=== PATIENT | female | born 1940 | race Caucasian/White ===

== ENCOUNTER 2018-06-30 12:16 | Emergency (ER) | payer MEDICARE, OTHER ==
[2018-06-30 12:32] VITALS: BP 181/75; PULSE 62; RESP 16; TEMP 98.8
--- NOTE | 2018-06-30 12:56 | ED ---
General Adult HPI - General Chief complaint: Extremity Injury, Lower Stated complaint: leg pain Time Seen by Provider: 06/30/18 12:40 Source: patient, RN notes reviewed Mode of arrival: wheelchair Limitations: no limitations - History of Present Illness Initial comments: Patient is a 77-year-old female presented to the emergency room today with a chief complaint of left knee pain. She states the pain started 2 days ago. She states no specific injury or trauma to it. She states that she feels pains located inside the left knee. Admits that this feels somewhat swollen to her. Patient states pain is worse with movements. States she can feel something "clicking" in it. Patient denies any other complaints. Patient denies any recent fever, chills, shortness of breath, chest pain, back pain, abdominal pain , nausea or vomiting, numbness or tingling, headaches or visual changes, or any other complaints. - Related Data Home Medications Medication Instructions Recorded Confirmed Atenolol [Tenormin] 50 mg PO DAILY 09/29/14 09/29/14 Insulin Glargine [Lantus] 36 unit SQ HS 09/29/14 09/29/14 Pravastatin Sodium [Pravachol] 20 mg PO DAILY 09/29/14 09/29/14 Quinapril HCl 40 mg PO DAILY 09/29/14 09/29/14 amLODIPine [Norvasc] 10 mg PO DAILY 09/29/14 09/29/14 sitaGLIPtin PHOSPHATE [Januvia] 100 mg PO DAILY 09/29/14 09/29/14 Previous Rx's Medication Instructions Recorded Amoxic-Pot Clav 875-125Mg 1 each PO Q12HR #14 tablet 10/01/14 [Augmentin Xr 875-125] Aspirin 81 mg PO BID #1 10/01/14 Ibuprofen [Motrin] 400 mg PO Q6HR PRN #15 tab 06/30/18 Allergies Allergy/AdvReac Type Severity Reaction Status Date / Time No Known Allergies Allergy Verified 06/30/18 12:32 Review of Systems ROS Statement: Those systems with pertinent positive or pertinent negative responses have been documented in the HPI. ROS Other: All systems not noted in ROS Statement are negative. Past Medical History Past Medical History: Diabetes Mellitus, Hyperlipidemia, Hypertension History of Any Multi-Drug Resistant Organisms: None Reported Past Surgical History: Hysterectomy, Orthopedic Surgery, Tonsillectomy Past Anesthesia/Blood Transfusion Reactions: No Reported Reaction Past Psychological History: No Psychological Hx Reported Smoking Status: Never smoker Past Alcohol Use History: None Reported Past Drug Use History: None Reported - Past Family History Father Family Medical History: Cancer, Diabetes Mellitus Additional Family Medical History / Comment(s): prostate cancer General Exam - General Exam Comments Initial Comments: General: The patient is awake and alert, in no distress, and does not appear acutely ill. Neck: The neck is supple, there is no tenderness or JVD. Cardiovascular: There is a regular rate and rhythm. No murmur, rub or gallop is appreciated. Respiratory: Lungs are clear to auscultation, respirations are non-labored, breath sounds are equal. No wheezes, stridor, rales, or rhonchi. Musculoskeletal: Patient does have normal appearance of the left knee no obvious deformity. She shows good range of motion both flexion and extension. Pedal pulses 2+. Strength is 5/5. No specific bony tenderness on exam. Negative Homans. Neurological: A&O x 3. CN II-XII intact, There are no obvious motor or sensory deficits. Coordination appears grossly intact. Speech is normal. Skin: Skin is warm and dry and no rashes or lesions are noted. Psychiatric: Normal mood and affect. Limitations: no limitations Course Vital Signs 06/30/18 12:27 Temperature 98.8 F Pulse Rate 62 Respiratory 16 Rate Blood Pressure 181/75 O2 Sat by Pulse 97 Oximetry Medical Decision Making - Medical Decision Making . Patient's right knee shows no acute fracture dislocation. Results were discussed with patient. Patient does have tenderness with flexion and extension of the right knee. Was discussed about possibility of injury to the meniscus. There is no redness or significant swelling. Patient's vitals are stable. At this time patient discharged home she is advised ice elevate and follow-up orthopedics over the next 2 days. Advised returning if symptoms increase worsen Disposition Clinical Impression: Knee pain Disposition: HOME SELF-CARE Condition: Good Instructions: Knee Sprain (ED) Additional Instructions: Please use medication as discussed. Please follow-up with the orthopedic over the next 2 days.. Please return to emergency room if the symptoms increase or worsen or for any other concerns. Prescriptions: Ibuprofen [Motrin] 400 mg PO Q6HR PRN #15 tab PRN Reason: Pain Is patient prescribed a controlled substance at d/c from ED?: No Referrals: Elda Timmons DO [Primary Care Provider] - 1-2 days Paresh Rivas DO [Doctor of Osteopathic Medicine] - 1-2 days Time of Disposition: 13:52
--- NOTE | 2018-06-30 13:19 | XR ---
EXAMINATION TYPE: XR knee complete LT DATE OF EXAM: 06/30/2018 CLINICAL HISTORY: Left knee pain for 3 days TECHNIQUE: Three views of the left knee are obtained. COMPARISON: None. FINDINGS: There is no acute fracture/dislocation evident in left knee. The tri-compartment joint sp aces appear unremarkable other than very minimal medial compartment osteophytes. The overlying soft tissue appears unremarkable. IMPRESSION: There is no acute fracture or dislocation in the left knee.
== END 2018-06-30 14:10 | disposition home or self-care (01) ==
LOC: EC 12:16
DX: M25.562 Pain in left knee (principal); M79.89 Other specified soft tissue disorders; E78.5 Hyperlipidemia, unspecified; I10 Essential (primary) hypertension; E11.9 Type 2 diabetes mellitus without complications; Z79.4 Long term (current) use of insulin; Z79.899 Other long term (current) drug therapy
CPT/HCPCS: 99283

== ENCOUNTER 2020-05-31 08:55 | Emergency (ER) | payer MEDICARE, OTHER ==
[2020-05-31 09:03] VITALS: RESP 16; TEMP 97.5
[2020-05-31 09:35] LABS: Glucose,Whole Blood 140 mg/dL (75-99)
[2020-05-31 09:42] LABS: Basophils % (A) 0 %; Eosinophils # (A) 0.1 k/uL (0-0.7); Eosinophils % (A) 1 %; HCT 39.9 % (34.0-46.0); HGB 13.1 gm/dL (11.4-16.0); Lymphocytes # (A) 1.1 k/uL (1.0-4.8); Lymphocytes % (A) 12 %; MCH 28.2 pg (25.0-35.0); MCHC 32.7 g/dL (31.0-37.0); Monocytes # (A) 0.3 k/uL (0-1.0); Monocytes % (A) 3 %; Neutrophils # (A) 7.5 k/uL (1.3-7.7); Neutrophils % (A) 83 %; Platelet Count 331 k/uL (150-450); RBC 4.64 m/uL (3.80-5.40); RDW 12.5 % (11.5-15.5)
--- NOTE | 2020-05-31 09:43 | CT ---
EXAMINATION TYPE: CT brain atif henrandez con DATE OF EXAM: 05/31/2020 COMPARISON: NONE HISTORY: Fall injury with loss of consciousness, dizziness, and neck pain. CT DLP: 1342.5 mGycm. Automated Exposure Control for Dose Reduction was Utilized. TECHNIQUE: CT scan of the head and cervical spine are performed without contrast. FINDINGS: There is no acute intracranial hemorrhage or midline shift identified. Mild to moderate d iffuse ventricular and sulcal prominence with some areas of low attenuation in the deep white matter. The calvarium is intact. Posterior opacification or fluid right sphenoid sinus with additional mild mucosal thickening. Remainder paranasal sinuses are clear. Globes are intact bilaterally. Cervical spine is visualized in its entirety from C1 through upper thoracic levels and demonstrates g rade 1 retrolisthesis C6 on C7 without evidence of acute fracture or dislocation. Prevertebral soft tissue appears within normal limits. The C1-C2 articulation is within normal limits on the coronal i mages. Moderate disc space narrowing and spurring C6-C7 level. Posterior spur disc complex effaces th e anterior thecal sac on sagittal image 38 and axial image 57 with right paracentral component. Revie w of axial images shows no additional significant disc herniation. Thyroid gland is normal in size. L tristen apices show no pneumothorax. IMPRESSION: 1. There is no acute fracture or dislocation evident in the cervical spine. Spondylolisthesis and deg enerative change C6-C7 level. 2. No acute intracranial hemorrhage or midline shift is seen. [id number] diffuse cerebral atrop hy and chronic small vessel ischemic change. 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
[2020-05-31 09:53] LABS: Albumin 4.5 g/dL (3.5-5.0); Calcium 9.3 mg/dL (8.4-10.2); Potassium 4.8 mmol/L (3.5-5.1); Total Bilirubin 0.5 mg/dL (0.2-1.3); Total Protein 8.2 g/dL (6.3-8.2)
[2020-05-31 09:55] LABS: INR 0.9 (<1.2); Partial Thromboplastin Time 26.6 sec (22.0-30.0); Prothrombin Time 9.5 sec (9.0-12.0)
--- NOTE | 2020-05-31 09:58 | ED ---
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 Family states the patient is instructed in with left leg sciatica for the past month. She states that she's been using her walker to walk this morning she states she remembers waking up with the son was out and attempting to reach out to grab her walker she states she is out of the rest she believes that she fell and lost consciousness. Patient's daughter states she did hear a thud and immediately came into the room when she got into the room the patient was placed down moaning in pain. She seemed slightly out of it. Daughter denies any seizure-like activity. When EMS came patient's glucose was 53 daughter states that she has been having troubles with glucose dipping down throughout the night or in the mornings. They have been working with insulin levels. Daughter says patient is at her baseline patient states she really has no complete of headache dizziness visual changes neck pain she denies any chest or abdominal pain. Denies any lacerations or abrasions. She states she is slightly increased low back pain however not very significant she denies A changes of bowel habits no incontinence of bowel or bladder no urinary retention denies sensation deficits to the lower extremities or weakness. She states she has on-and-off pain shooting down the left posterior leg Pt denies any unusual sympotms when waking or going to bed for evening. Denies chest pain, headaches, sob or dizziness. on arrival patient pleasant and well appearing glucose 140. - Related Data Home Medications Medication Instructions Recorded Confirmed Insulin Glargine [Lantus] 36 unit SQ HS 09/29/14 09/29/14 Pravastatin Sodium [Pravachol] 20 mg PO DAILY 09/29/14 09/29/14 Quinapril HCl 40 mg PO DAILY 09/29/14 09/29/14 amLODIPine [Norvasc] 10 mg PO DAILY 09/29/14 09/29/14 atenoloL [Tenormin] 50 mg PO DAILY 09/29/14 09/29/14 sitaGLIPtin PHOSPHATE [Januvia] 100 mg PO DAILY 09/29/14 09/29/14 Previous Rx's Medication Instructions Recorded Amoxic-Pot Clav 875-125Mg 1 each PO Q12HR #14 tablet 10/01/14 [Augmentin Xr 875-125] Aspirin 81 mg PO BID #1 10/01/14 Ibuprofen [Motrin] 400 mg PO Q6HR PRN #15 tab 06/30/18 Allergies Allergy/AdvReac Type Severity Reaction Status Date / Time No Known Allergies Allergy Verified 05/31/20 08:58 Review of Systems ROS Statement: Those systems with pertinent positive or pertinent negative responses have been documented in the HPI. ROS Other: All systems not noted in ROS Statement are negative. Past Medical History Past Medical History: Diabetes Mellitus, Hyperlipidemia, Hypertension History of Any Multi-Drug Resistant Organisms: None Reported Past Surgical History: Hysterectomy, Orthopedic Surgery, Tonsillectomy Past Anesthesia/Blood Transfusion Reactions: No Reported Reaction Past Psychological History: No Psychological Hx Reported Smoking Status: Never smoker Past Alcohol Use History: None Reported Past Drug Use History: None Reported - Past Family History Father Family Medical History: Cancer, Diabetes Mellitus Additional Family Medical History / Comment(s): prostate cancer General Exam - General Exam Comments Initial Comments: General: The patient is awake and alert, in no distress Eye: +3 mm pupils are equal, round and reactive to light, extra-ocular movements are intact. No nystagmus. There is normal conjunctiva bilaterally. No signs of icterus. Ears, nose, mouth and throat: There are moist mucous membranes and no oral lesions. Neck: The neck is supple, there is no tenderness or JVD. No midline tenderness to patient the cervical spine, full ROM Cardiovascular: There is a regular rate and rhythm. No murmur, rub or gallop is appreciated. Respiratory: Lungs are clear to auscultation, respirations are non-labored, breath sounds are equal. No wheezes, stridor, rales, or rhonchi. Gastrointestinal: Soft, non-distended, non-tender abdomen without masses or organomegaly noted. There is no rebound or guarding present. Musculoskeletal: No midline tenderness palpation of the cervical thoracic or lumbar spine normal inspection. No ecchymosis Normal ROM, no tenderness. Strength 5/5. Sensation intact. Radial pulses equal bilaterally 2+. Neurological: A&O x 3. CN II-XII intact, There are no obvious motor or sensory deficits. Coordination appears grossly intact. Speech is normal. Finger to nose with a coordinated heel to shins and coordinated no pronator drift Skin: Skin is warm and dry and no rashes or lesions are noted. Psychiatric: Cooperative, appropriate mood & affect, normal judgment. Limitations: no limitations Course Vital Signs 05/31/20 05/31/20 08:59 10:59 Temperature 97.5 F L Pulse Rate 69 70 Respiratory 16 16 Rate Blood Pressure 191/77 180/70 O2 Sat by Pulse 100 98 Oximetry Medical Decision Making - Medical Decision Making imaging (-) glucose elevated. EKG and labs without critical findings. Pt at baseline per family. Discussed imaging, labs at this time after discussing with mohini and my attending provider we feel patie ntis stable for discharge with pcp f/u. patient is to monitor glucose and discussed with PCP the issue of glucose dropping. Patient discharged appearing well. - Lab Data Result diagrams: 05/31/20 09:16 05/31/20 09:16 Lab Results 05/31/20 05/31/20 05/31/20 Range/Units 09:16 09:16 09:16 WBC 9.0 (3.8-10.6) k/uL RBC 4.64 (3.80-5.40) m/uL Hgb 13.1 (11.4-16.0) gm/dL Hct 39.9 (34.0-46.0) % MCV 86.0 (80.0-100.0) fL MCH 28.2 (25.0-35.0) pg MCHC 32.7 (31.0-37.0) g/dL RDW 12.5 (11.5-15.5) % Plt Count 331 (150-450) k/uL Neutrophils % 83 % Lymphocytes % 12 % Monocytes % 3 % Eosinophils % 1 % Basophils % 0 % Neutrophils # 7.5 (1.3-7.7) k/uL Lymphocytes # 1.1 (1.0-4.8) k/uL Monocytes # 0.3 (0-1.0) k/uL Eosinophils # 0.1 (0-0.7) k/uL Basophils # 0.0 (0-0.2) k/uL PT 9.5 (9.0-12.0) sec INR 0.9 (<1.2) APTT 26.6 (22.0-30.0) sec Sodium 130 L (137-145) mmol/L Potassium 4.8 (3.5-5.1) mmol/L Chloride 96 L (98-107) mmol/L Carbon Dioxide 24 (22-30) mmol/L Anion Gap 10 mmol/L BUN 23 H (7-17) mg/dL Creatinine 0.99 (0.52-1.04) mg/dL Est GFR (CKD-EPI)AfAm 63 (>60 ml/min/1.73 sqM) Est GFR (CKD-EPI)NonAf 55 (>60 ml/min/1.73 sqM) Glucose 158 H (74-99) mg/dL POC Glucose (mg/dL) (75-99) mg/dL POC Glu [employer] Circ[employer] ID Calcium 9.3 (8.4-10.2) mg/dL Total Bilirubin 0.5 (0.2-1.3) mg/dL AST 25 (14-36) U/L ALT 14 (4-34) U/L Alkaline Phosphatase 113 (38-126) U/L Creatine Kinase 193 H (30-135) U/L Troponin I (0.000-0.034) ng/mL Total Protein 8.2 (6.3-8.2) g/dL Albumin 4.5 (3.5-5.0) g/dL 05/31/20 05/31/20 Range/Units 09:16 09:33 WBC (3.8-10.6) k/uL RBC (3.80-5.40) m/uL Hgb (11.4-16.0) gm/dL Hct (34.0-46.0) % MCV (80.0-100.0) fL MCH (25.0-35.0) pg MCHC (31.0-37.0) g/dL RDW (11.5-15.5) % Plt Count (150-450) k/uL Neutrophils % % Lymphocytes % % Monocytes % % Eosinophils % % Basophils % % Neutrophils # (1.3-7.7) k/uL Lymphocytes # (1.0-4.8) k/uL Monocytes # (0-1.0) k/uL Eosinophils # (0-0.7) k/uL Basophils # (0-0.2) k/uL PT (9.0-12.0) sec INR (<1.2) APTT (22.0-30.0) sec Sodium (137-145) mmol/L Potassium (3.5-5.1) mmol/L Chloride (98-107) mmol/L Carbon Dioxide (22-30) mmol/L Anion Gap mmol/L BUN (7-17) mg/dL Creatinine (0.52-1.04) mg/dL Est GFR (CKD-EPI)AfAm (>60 ml/min/1.73 sqM) Est GFR (CKD-EPI)NonAf (>60 ml/min/1.73 sqM) Glucose (74-99) mg/dL POC Glucose (mg/dL) 140 H (75-99) mg/dL POC Glu [employer] Circ[employer] ID Elise Morrison Calcium (8.4-10.2) mg/dL Total Bilirubin (0.2-1.3) mg/dL AST (14-36) U/L ALT (4-34) U/L Alkaline Phosphatase (38-126) U/L Creatine Kinase (30-135) U/L Troponin I <0.012 (0.000-0.034) ng/mL Total Protein (6.3-8.2) g/dL Albumin (3.5-5.0) g/dL Disposition Clinical Impression: Fall, Low back pain, Head injury Disposition: HOME SELF-CARE Condition: Good Additional Instructions: Please use medication as discussed. Please follow-up with family doctor in the next 2 days. Please return to emergency room if the symptoms increase or worsen or for any other concerns. Is patient prescribed a controlled substance at d/c from ED?: No Referrals: Elda Timmons DO [Primary Care Provider] - 1-2 days Time of Disposition: 10:52
--- NOTE | 2020-05-31 10:36 | XR ---
EXAM TYPE: LUMBAR SPINE X RAY SERIES COMPARISON: NONE HISTORY: Pain TECHNIQUE: 4 views are submitted. FINDINGS: Alignment is anatomic. The pedicles are intact. The transverse processes are intact. There is no s pondylolisthesis. Diffuse osteopenia. Multilevel degenerative disc disease. No compression deformiti es. Severe degenerative changes L5-S1. Multilevel facet arthropathy. Pedicles intact. Arthropathy of the SI joints and hips. Calcifications the pelvis are likely vascular. IMPRESSION: 1. Multilevel degenerative disc disease..
--- NOTE | 2020-05-31 10:38 | XR ---
EXAMINATION TYPE: XR pelvis AP view DATE OF EXAM: 05/31/2020 COMPARISON: NONE HISTORY: Pain The osseous structures are intact and the joint spaces are preserved. No acute fracture is seen. Vi sualized bowel gas pattern is nonspecific. Degenerative changes spine. Paraspinal calcification on t he left likely outside the genitourinary system. Bilateral hip arthropathy. Calcifications in the pel vis appear to be vascular. Hypertrophic changes involving the iliac crest noted. IMPRESSION: 1. No acute fracture. 2. 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
--- NOTE | 2020-05-31 10:39 | XR ---
EXAMINATION TYPE: XR chest 2V DATE OF EXAM: 05/31/2020 COMPARISON: NONE HISTORY: Fall injury for one day with chest pain. TECHNIQUE: Frontal and lateral views of the chest are obtained. FINDINGS: There is no focal air space opacity, pleural effusion, or pneumothorax seen. The cardiac silhouette size is enlarged. The osseous structures are somewhat demineralized. Multilevel spurring in the mid to lower thoracic spine is present. IMPRESSION: Cardiomegaly without acute pulmonary process.
[2020-05-31 11:05] VITALS: BP 180/70; PULSE 70
== END 2020-05-31 11:00 | disposition home or self-care (01) ==
LOC: EC 08:55
DX: S09.90XA Unspecified injury of head, initial encounter (principal); M54.5 Low back pain; I10 Essential (primary) hypertension; E11.9 Type 2 diabetes mellitus without complications; E78.5 Hyperlipidemia, unspecified; Z79.84 Long term (current) use of oral hypoglycemic drugs; Z79.4 Long term (current) use of insulin; Z79.899 Other long term (current) drug therapy; W19.XXXA Unspecified fall, initial encounter; Y92.009 Unspecified place in unspecified non-institutional (private) residence as the place of occurrence of the external cause
CPT/HCPCS: 36415; 70450; 71046; 72100; 72125; 72170; 80053; 82550; 84484; 85025; 85610; 85730; 93005; 99284

== ENCOUNTER → 2021-03-12 | Outpatient (CLI) | payer MEDICARE, OTHER ==
--- NOTE | 2021-03-12 13:48 | US ---
EXAMINATION TYPE: US venous doppler duplex LE RT DATE OF EXAM: 03/12/2021 1:02 PM COMPARISON: NONE CLINICAL HISTORY: I80.9 PHLEBITIS AND THROMBOPHLEBITIS. SIDE PERFORMED: Right TECHNIQUE: The lower extremity deep venous system is examined utilizing real time linear array sonog milton with graded compression, doppler sonography and color-flow sonography. VESSELS IMAGED: Common Femoral Vein Deep Femoral Vein Greater Saphenous Vein * Femoral Vein Popliteal Vein Small Saphenous Vein * Proximal Calf Veins (* superficial vessels) Right Leg: Appears negative for DVT. IMPRESSION: 1. No evidence of deep venous thrombosis within the right lower extremity veins.
== END | disposition home or self-care (01) ==
LOC: RADUSWWP 13:00
PROVIDERS: ATTEND Orthopaedic Surgery
DX: I80.9 Phlebitis and thrombophlebitis of unspecified site (principal)

== ENCOUNTER 2021-08-31 13:51 | Emergency (ER) | payer MEDICARE, OTHER ==
[2021-08-31 17:51] VITALS: TEMP 98.1
[2021-08-31] MEDS ORDERED: SODIUM CHLORIDE 0.9% 50 ML IVPB ONE (21:00)
[2021-08-31] MEDS ORDERED: BAMLANIVIMAB (EUA) 700 MG, ETESEVIMAB (EUA) 1,400 MG in SODIUM CHLORIDE 0.9% 50 ML IVPB ONE (21:00)
[2021-08-31 21:26] VITALS: BP 171/72; PULSE 68; RESP 18
--- NOTE | 2021-08-31 21:39 | ED ---
General Adult HPI - General Chief complaint: Upper Respiratory Infection Stated complaint: COVID+, Wants infusion Time Seen by Provider: 08/31/21 20:12 Source: patient Mode of arrival: ambulatory Limitations: no limitations - History of Present Illness Initial comments: 80-year-old female with a past medical history diabetes mellitus, hyperlipidemia, hypertension presents to the emergency room for a chief complaint of wanting antibody infusion. Patient has had COVID-19 symptoms since Friday and then tested positive today. Patient states her doctor told her she should get the antibodies immediately and to come to the emergency room. Patient symptoms are headache diarrhea cough congestion. She does not have shortness of breath. No chest pain.Patient has no other complaints at this time including shortness of breath, chest pain, abdominal pain, nausea or vomiting, headache, or visual changes. - Related Data Home Medications Medication Instructions Recorded Confirmed Insulin Glargine [Lantus Vial] 36 unit SQ HS 09/29/14 09/29/14 Pravastatin Sodium [Pravachol] 20 mg PO DAILY 09/29/14 09/29/14 Quinapril HCl 40 mg PO DAILY 09/29/14 09/29/14 amLODIPine [Norvasc] 10 mg PO DAILY 09/29/14 09/29/14 atenoloL [Tenormin] 50 mg PO DAILY 09/29/14 09/29/14 sitaGLIPtin PHOSPHATE [Januvia] 100 mg PO DAILY 09/29/14 09/29/14 Previous Rx's Medication Instructions Recorded Amoxic-Pot Clav 875-125Mg 1 each PO Q12HR #14 tablet 10/01/14 [Augmentin Xr 875-125] Aspirin 81 mg PO BID #1 10/01/14 Ibuprofen [Motrin] 400 mg PO Q6HR PRN #15 tab 06/30/18 Allergies Allergy/AdvReac Type Severity Reaction Status Date / Time No Known Allergies Allergy Verified 08/31/21 17:51 Review of Systems ROS Statement: Those systems with pertinent positive or pertinent negative responses have been documented in the HPI. ROS Other: All systems not noted in ROS Statement are negative. Past Medical History Past Medical History: Diabetes Mellitus, Hyperlipidemia, Hypertension History of Any Multi-Drug Resistant Organisms: None Reported Past Surgical History: Hysterectomy, Orthopedic Surgery, Tonsillectomy Past Anesthesia/Blood Transfusion Reactions: No Reported Reaction Past Psychological History: No Psychological Hx Reported Smoking Status: Never smoker Past Alcohol Use History: None Reported Past Drug Use History: None Reported - Past Family History Father Family Medical History: Cancer, Diabetes Mellitus Additional Family Medical History / Comment(s): prostate cancer General Exam Limitations: no limitations General appearance: alert, in no apparent distress Head exam: Present: atraumatic Eye exam: Present: normal appearance, PERRL, EOMI. Absent: scleral icterus ENT exam: Present: normal exam, mucous membranes moist Neck exam: Present: normal inspection, full ROM. Absent: tenderness Respiratory exam: Present: normal lung sounds bilaterally. Absent: respiratory distress, wheezes Cardiovascular Exam: Present: regular rate, normal rhythm, normal heart sounds GI/Abdominal exam: Present: soft, normal bowel sounds. Absent: distended, tenderness Course Vital Signs 08/31/21 08/31/21 17:46 21:25 Temperature 98.1 F Pulse Rate 64 68 Respiratory 16 18 Rate Blood Pressure 182/80 171/72 O2 Sat by Pulse 100 100 Oximetry Medical Decision Making - Medical Decision Making Vitals are stable. Patient is well-appearing. Patient has minor COVID-19 symptoms. Patient is not vaccinated but does wish to have antibody infusion. Risks versus benefits were discussed. Patient was given infusion and monitored for one hour afterwards. Will be discharged home to follow up with primary care with strict return parameters. Disposition Clinical Impression: COVID-19 Disposition: HOME SELF-CARE Condition: Good Instructions (If sedation given, give patient instructions): Coronavirus Disease 2019 (COVID-19) Additional Instructions: Please follow up with primary care in 1-2 days. Return to the emergency room for any worsening symptoms. Is patient prescribed a controlled substance at d/c from ED?: No Referrals: Elda Timmons DO [Primary Care Provider] - 1-2 days Time of Disposition: 21:38
== END 2021-08-31 23:39 | disposition home or self-care (01) ==
LOC: EC 13:51
DX: U07.1 COVID-19 (principal); E11.9 Type 2 diabetes mellitus without complications; E78.5 Hyperlipidemia, unspecified; I10 Essential (primary) hypertension; Z79.4 Long term (current) use of insulin; Z79.82 Long term (current) use of aspirin; Z90.710 Acquired absence of both cervix and uterus
CPT/HCPCS: 99283; M0245